=== PATIENT | male | born 1985 | race Two or more races ===

== ENCOUNTER 2025-03-21 08:20 | Emergency (ER) | payer MEDICAID, SELFPAY ==
[2025-03-21 08:26] VITALS: BP 154/90; PULSE 137; RESP 20; TEMP 37.1; O2SAT 95
--- NOTE | 2025-03-21 08:33 | EKG_ITS ---
[facility] Test Date: 2025-03-21 Pat Name: EZEQUIEL PEREYRA Department: Room: - Gender: Male [employer] Operator: : 1985 Requested By: Nasim Hameed Order Number: [id number] Reading MD: Nasim Hameed Measurements Intervals [place] Rate: 126 P: 48 AL: 122 QRS: 26 QRSD: 85 T: 8 QT: 305 QTc: 442 Interpretive Statements SINUS TACHYCARDIA ABNORMAL RHYTHM ECG Compared to ECG 01/18/2022 18:14:20 Short AL interval no longer present T-wave abnormality no longer present /store/S0/[id number]/[id number].pdf
--- NOTE | 2025-03-21 08:33 | PD.EDRME ---
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 A comprehensive ED assessment and evaluation of the patient, analysis of all test results, and completion of the medical decision making process will be conducted by additional ED providers. Chief Complaint: Flu Like Symptoms Time Seen by Provider: 03/21/25 08:29 Vital signs: Vital Signs Temperature 98.8 F 03/21/25 08:26 Pulse Rate 137 H 03/21/25 08:26 Respiratory Rate 20 03/21/25 08:26 Blood Pressure 154/90 H 03/21/25 08:26 Pulse Oximetry (%) 95 03/21/25 08:26 Vital signs reviewed by provider: Yes Exam: Patient is tachycardic. Has a strong irregular rhythm S1 and S2 Clear bilateral lung sounds Clinical Impression: Pneumonia/URI/acute angle glaucoma
[2025-03-21] MEDS: ACETAMINOPHEN 500 MG TABLET 1000 MG PO (08:45)
[2025-03-21 08:46] VITALS: BMI 37.0
--- NOTE | 2025-03-21 10:39 | PD.EDADULT ---
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 A comprehensive ED assessment and evaluation of the patient, analysis of all test results, and completion of the medical decision making process will be conducted by additional ED providers. Exam: Patient is tachycardic. Has a strong irregular rhythm S1 and S2 Clear bilateral lung sounds Impression: Pneumonia/URI/acute angle glaucoma Related Data Home Medications ?Medication ?Instructions ?Recorded ?Confirmed brimonidine 0.15 % eye drops 1 drp ophthalmic (eye) 2XD 01/18/22 01/18/22 latanoprost 0.005 % eye drops 1 drp ophthalmic (eye) 1XD 01/18/22 01/18/22 timolol maleate 0.5 % eye drops 1 drp ophthalmic (eye) 2XD 01/18/22 01/18/22 Previous Rx's ?Medication ?Instructions ?Recorded cyclobenzaprine 5 mg tablet 5 mg PO QHSPRN PRN muscle spasm 07/10/22 #10 tabs ibuprofen 600 mg tablet 600 mg PO TID PRN pain #30 tabs 07/10/22 Allergies Allergy/AdvReac Type Severity Reaction Status Date / Time No Known Allergies Allergy Verified 02/17/24 07:11 Course Orders Category Date Time Status Bedside COVID-19 Antigen Test NOW Care 03/21/25 08:32 Active EKG (ED ONLY) *Do not use* NOW Care 03/21/25 08:33 Completed Tonometer to Bedside X1 Care 03/21/25 08:32 Active EKG (ED Only) Stat Exams 03/21/25 08:33 Draft BNP [B-Type Natriuretic Peptide] Stat Lab 03/21/25 08:33 Ordered CBC Stat Lab 03/21/25 08:32 Ordered CMP [Comprehensive Metabolic Panel] Stat Lab 03/21/25 08:32 Ordered Influenza A & B Rapid Panel Stat Lab 03/21/25 08:32 Ordered Lipase Stat Lab 03/21/25 08:32 Ordered Troponin I Stat Lab 03/21/25 08:32 Ordered UA [Urinalysis] Stat Lab 03/21/25 08:32 Ordered Urine Culture Stat Lab 03/21/25 08:32 Ordered Acetaminophen Tab [Tylenol ES Tab] Med 03/21/25 08:35 Discontinued 1,000 mg PO X1 ONE Vital Signs Vital signs: Vital Signs Temperature 98.8 F 03/21/25 08:26 Pulse Rate 137 H 03/21/25 08:26 Respiratory Rate 20 03/21/25 08:26 Blood Pressure 154/90 H 03/21/25 08:26 Pulse Oximetry (%) 95 03/21/25 08:26 Discharge Plan Prescriptions/Referrals Prescriptions/Med Rec: No Action ibuprofen 600 mg tablet 600 mg PO TID PRN (Reason: pain) Qty: 30 0RF cyclobenzaprine 5 mg tablet 5 mg PO QHSPRN PRN (Reason: muscle spasm) Qty: 10 0RF latanoprost 0.005 % drops 1 drp OPHTHALMIC (EYE) 1XD Patient Comments: INSTILL ONE DROP BOTH eyes AT BEDTIME timolol maleate 0.5 % drops 1 drp OPHTHALMIC (EYE) 2XD Patient Comments: INSTILL ONE DROP IN THE RIGHT EYE TWICE DAILY brimonidine 0.15 % drops 1 drp OPHTHALMIC (EYE) 2XD Patient Comments: INSTILL ONE DROP IN THE RIGHT EYE TWICE DAILY Referrals: No Primary/Family,Physician [Primary Care Provider] - In 1 week Patient/Caregiver Discharge Instructions Print Language: Guatemalan MDM Medication Administration(s) Medication Administration History Discontinued Medications Acetaminophen (Acetaminophen 500 Mg Tablet) 1,000 mg PO X1 ONE Stop: 03/21/25 08:36 Last Admin: 03/21/25 08:45 Dose: 1,000 mg Documented By: LOKI
--- NOTE | 2025-03-21 11:32 | PC.NURSE ---
PT NOT FOUND IN OR OUTSIDE OF LOBBY X3. PT ELOPED.
== END 2025-03-21 11:34 | disposition left against medical advice (07) ==
LOC: SERX 08:51
PROVIDERS: Emergency Provider Emergency Medicine
DX: J18.9 Pneumonia, unspecified organism (principal); J06.9 Acute upper respiratory infection, unspecified; H40.211 Acute angle-closure glaucoma, right eye; R00.0 Tachycardia, unspecified; Z53.29 Procedure and treatment not carried out because of patient's decision for other reasons
CPT/HCPCS: 80053; 81001; 83690; 83880; 84484; 85025; 87086; 87502; 93005; 99282; A9270

== ENCOUNTER 2025-03-30 11:40 | Emergency (ER) | payer MEDICAID, SELFPAY ==
[2025-03-30 11:40] VITALS: BMI 36.3
[2025-03-30 11:50] VITALS: BP 148/92; PULSE 93; RESP 16; TEMP 36.6; O2SAT 98
--- NOTE | 2025-03-30 11:52 | XR_ITS ---
Examination: CT abdomen with intravenous contrast CT pelvis with intravenous contrast 2-D coronal reconstructions 2-D sagittal reconstructions Date and time of exam: March 30, 2025, 1505 hours, comparison October 26, 2017 INDICATIONS: Rectal bleeding beginning 1 week ago. CTDI: vol (mGy) 10.8 DLP: (mGycm) 742 Technique: Multiple axial sections of the abdomen and pelvis have been obtained. 64 slice high-resolution scanner used. 3 mm axial sections have been obtained, post intravenous injection 60 cc Isovue 370 2-D sagittal, coronal reconstructions obtained. Low dose protocols were performed. One or more of the following dose reduction techniques were used; automated exposure control, adjustment of the mA and/or KV according to patient size, use of iterative reconstruction technique. Findings: No visualized liver or splenic lesion No gallstones No pancreatic or adrenal mass No renal or ureteral calculi Aorta normal size Fat replacement throughout the colon seen with prior episodes of colitis No current colitis or bowel obstruction Normal seminal vesicles No prostatomegaly No acute proctitis pattern IMPRESSION: Findings most consistent with prior episodes of diffuse colitis, no current colitis
--- NOTE | 2025-03-30 11:53 | PD.EDRME ---
Rapid Medical Screening Exam RME Arrival date/time: 03/30/25 11:40 Chief Complaint: GI Bleed Vital signs: Vital Signs Temperature 97.9 F 03/30/25 11:50 Pulse Rate 93 03/30/25 11:50 Respiratory Rate 16 03/30/25 11:50 Blood Pressure 148/92 H 03/30/25 11:50 Pulse Oximetry (%) 98 03/30/25 11:50 Oxygen Delivery Method Room Air 03/30/25 11:50 Vital signs reviewed by provider: No Exam: On exam patient well-appearing does not appear ill or toxic no acute distress Clinical Impression: Labs and imaging obtained
[2025-03-30 12:34] LABS: Basophils # (Auto) 0.0 Thou/mm3 (0.0-0.2); Basophils % (Auto) 0 % (0-2.5); Eosinophils # (Auto) 0.2 Thou/mm3 (0.0-0.5); Eosinophils % (Auto) 2 % (0-10); Hematocrit 46.6 % (41.0-53.0); Hemoglobin 15.5 g/dL (13.5-16.0); Immature Granulocytes Auto 0.12 Thou/mm3 (0.00-0.00); Lymphocytes # (Auto) 2.0 Thou/mm3 (1.0-4.8); Lymphocytes % (Auto) 26 % (10-50); Mean Corpuscular HGB Conc 33.3 g/dl (31.0-37.0); Mean Corpuscular Hemoglobin 30.1 pg (25.0-35.0); Mean Corpuscular Volume 91 fL (80-100); Monocytes # (Auto) 0.5 Thou/mm3 (0.0-0.8); Monocytes % (Auto) 7 % (0-12); Neutrophils # (Auto) 4.8 Thou/mm3 (1.8-7.7); Neutrophils % (Auto) 64 % (37-80); Nucleated Red Blood Cell # 0.00 Thou/mm3 (0.00-0.00); Nucleated Red Blood Cell % 0 /100 WBC (0); Platelet Count 300 Thou/mm3 (140-440); RDW Standard Deviation 46.5 fL (35.1-43.9); Red Blood Count 5.15 Miln/mm3 (4.50-5.90); White Blood Count 7.6 Thou/mm3 (3.8-10.6)
[2025-03-30 12:49] LABS: INR 0.9 (0.9-1.3); Partial Thromboplastin Time 31.9 Seconds (22.0-36.0); Prothrombin Time 10.1 Seconds (9.0-12.2)
[2025-03-30 12:52] LABS: Alanine Aminotransferase 59 U/L (10-49); Albumin, Serum 4.7 gm/dL (3.5-5.0); Albumin/Globulin Ratio 1.6 (1.2-2.2); Alkaline Phosphatase 82 U/L (46-116); Anion Gap 9 (7-16); Aspartate Amino Transferase 21 U/L (0-34); BUN/Creatinine Ratio 11 Ratio (12-20); Bilirubin,Total 0.4 mg/dL (0.3-1.2); Blood Urea Nitrogen 9 mg/dL (9-23); Calcium 9.6 mg/dL (8.3-10.6); Calcium (Corrected) 9.6 mg/dL (8.5-10.1); Carbon Dioxide 28.4 mMol/L (20.0-31.0); Chloride 106 mMol/L (98-107); Creatinine (Component) 0.8 mg/dL (0.6-1.3); Estimated Creatinine Clearance 140.5 mL/min (>60); Globulin 2.9 gm/dL (2.3-3.5); Glucose 103 mg/dL (74-106); Lipase 32 U/L (12-53); Osmolality,Calculated 283 (275-295); Potassium 4.1 mMol/L (3.4-5.1); Sodium 143 mMol/L (136-145); Total Protein 7.6 gm/dL (5.7-8.2); eGFR > 60 See Note
[2025-03-30 12:54] LABS: Collection Type, Urine Clean Catch
[2025-03-30 13:02] LABS: Bilirubin,Urine Negative (Negative); Blood,Urine Negative (Negative); Clarity,Urine Clear (Clear/Hazy); Color,Urine Lt-Yellow (Lt Yel-Yel); Culture Indicated,Urine Not Indicated; Glucose, Urine Negative (Negative); Ketones,Urine Negative (Negative); Leukocyte Esterase,Urine Negative (Negative); Nitrite,Urine Negative (Negative); PH,Urine 6.0 (5.0-7.0); Protein,Urine Negative (Neg - Trace); RBC,Urine 3 /hpf (0-3); Specific Gravity,Urine 1.024 (1.001-1.035); Squamous Epithelial Cell,Urine < 1 /hpf (0-5); Urobilinogen,Urine Negative mg/dL (0.0-1.0); WBC,Urine 2 /hpf (0-5)
[2025-03-30 13:11] LABS: Amphetamine/Methamp Scrn,U Negative (Negative); Barbiturate Screen,Urine Negative (Negative); Benzodiazepines Screen,Urine Negative (Negative); Benzoylecgonine Screen, Ur Positive (Negative); Fentanyl Screen,Urine Negative (Negative); Opiate Screen,Urine Negative (Negative); THC Screen,Urine Positive (Negative)
--- NOTE | 2025-03-30 16:04 | EDNOTE_ITS ---
ED GI Bleed RME/HPI General Chief complaint: GI Bleed Stated complaint: GI bleed Time Seen by Provider: 03/30/25 13:48 Arrival date/time: 03/30/25 11:40 39-year-old male presents to the emergency department today for complaints of blood in his stool patient reports symptom onset a couple of weeks ago patient was seen in [place] ER already for the same Limitations: no limitations RME / HPI RME / HPI Narrative: 03/30/25 11:40 Exam: On exam patient well-appearing does not appear ill or toxic no acute distress Impression: Labs and imaging obtained Related Data Home Medications ?Medication ?Instructions ?Recorded ?Confirmed brimonidine 0.15 % eye drops 1 drp ophthalmic (eye) 2X D 01/18/22 01/18/22 latanoprost 0.005 % eye drops 1 drp ophthalmic (eye) 1 XD 01/18/22 01/18/22 timolol maleate 0.5 % eye drops 1 drp ophthalmic (eye) 2XD 01/18/22 01/18/22 Previous Rx's ?Medication ?Instructions ?Recorded cyclobenzaprine 5 mg tablet 5 mg PO QHSPRN PRN muscle spasm 07/10/22 #10 tabs ibuprofen 600 mg tablet 600 mg PO TID PRN pain #30 t abs 07/10/22 hydrocortisone acetate 25 mg 25 mg MT BID #24 ea 03/30 rectal suppository (Anusol-HC) Allergies Allergy/AdvReac Type Severity Reaction Status Date / Time No Known Allergies Allergy Verified 03/30/25 11:43 Review of Systems Review of Systems Systems Reviewed: All systems reviewed, normal except as documented Constitutional Constitutional: Reports system reviewed and no additional complaints, except as documented, Denies fever(s) and Denies headache(s) Eyes Eyes: Reports system reviewed and no additional complaints, except as documented and Denies blurry vision ENT Ears, Nose, Mouth, and Throat: Reports system reviewed and no additional complaints, except as documented, Denies headache(s), Denies nasal congestion and Denies nasal discharge Cardiovascular Cardiovascular: Reports system reviewed and no additional complaints, except as documented, Denies chest pain and Denies dyspnea Respiratory Respiratory: Reports system reviewed and no additional complaints, except as documented, Denies chest congestion, Denies cough and Denies dyspnea Gastrointestinal Gastrointestinal: Reports system reviewed and no additional complaints, except as documented, Denies abdominal pain and Reports hematochezia Integumentary/Breasts Skin/Breast: Reports system reviewed and no additional complaints, except as documented and Denies rash Neurologic Neurologic: Reports system reviewed and no additional complaints, except as documented, Reports as per HPI and Denies headache(s) Past Medical History Past Medical History CARDIAC: Negative Cardiac Disorders or Congestive Heart Failure RESPIRATORY: Negative Chronic Obstructive Pulmonary Disease (COPD) or Asthma GENITOURINARY: Negative Renal Disease ENDOCRINE: Negative Diabetes Mellitus Type 1 or Diabetes Mellitus Type 2 HEMATOLOGIC: Negative Sickle Cell Disease Social History SMOKING STATUS: Never smoker ED Exam General Limitations: Present no limitations General appearance: Present alert and in no apparent distress Head Head exam: Present atraumatic, normocephalic and normal inspection Eye Eye exam: Present normal appearance, PERRL and EOMI; Absent conjunctival injection ENT ENT exam: Present normal exam, normal oropharynx and mucous membranes moist Neck Neck exam: Present normal inspection, full ROM and trachea midline Chest Chest inspection: Present normal inspection and symmetric chest wall rise Respiratory Respiratory exam: Present normal lung sounds bilaterally Cardiovascular Cardiovascular exam: Present regular rate, normal rhythm and normal heart sounds Abdominal Exam Abdominal exam: Present soft; Absent distention, tenderness, guarding, rebound or rigidity Extremities Exam Extremities exam: Present normal inspection and full ROM Back Exam Back exam: Present normal inspection and full ROM Neurological Exam Neurological exam: Present alert, oriented X3 and CN II-XII intact Psychiatric Psychiatric exam: Present normal affect and normal mood Skin Skin exam: Present warm, dry, intact and normal color Course Quality Measures none Orders Category Date Time Status CT Screening NOW Care 03/30/25 11:52 Completed Insert IV NOW Care 03/30/25 11:[address] abdomen pelvis w con Stat Exams 03/30/25 11:52 Completed CBC Stat Lab 03/30/25 12:10 Completed Comprehensive Metabolic Panel Stat Lab 03/30/25 12:10 Completed Drug Screen,Urine Stat Lab 03/30/25 12:41 Completed Lipase Stat Lab 03/30/25 12:10 Completed Partial Thromboplastin Time Stat Lab 03/30/25 12:10 Completed Prothrombin Time with INR Stat Lab 03/30/25 12:10 Completed UA, C/S IF [Urinalysis, C/S if Indicated] Stat Lab 03/30/25 12:40 Completed Vital Signs Vital signs: Vital Signs Temperature 97.9 F 12/04/25 11:50 Pulse Rate 93 03/30/25 11:50 Respiratory Rate 16 03/30/25 11:50 Blood Pressure 148/92 H 03/30/25 11:50 Pulse Oximetry (%) 98 03/30/25 11:50 Oxygen Delivery Method Room Air 03/30/25 11:50 O2 saturation 98% room air within normal limits GI Bleed MDM Narrative MDM Narrative:: 39-year-old male presents to the emergency department today for complaints of blood in his stool patient reports symptom onset a couple of weeks ago patient was seen in [facility] already for the same On exam patient well-appearing does not appear ill or toxic Lab work and imaging obtained no acute emergent findings noted Patient is hemodynamically stable well-appearing not pale no active bleeding hemoglobin stable Explained to the patient although lab work and imaging are unremarkable he still needs to have a colonoscopy and further evaluation with GI specialist patient states understanding Patient discharged home in no distress to follow-up with primary care doctor in the next 24 to 48 hours and for any worsening symptoms to return to the ER immediately Patient data External records reviewed:: [facility] previous records Clinical information provided by:: patient Social determinants that could affect healthcare access:: none Patient has the following chronic illnesses:: See history How is presenting disease/condition affected by chronic disease/condition?: uneffected by Evaluation data The following diagnostics were reviewed and interpreted by me:: lab results and radiology exam(s) Lab and/or radiology exams considered but not ordered:: Labs and radiology obtained Interpretation Summary: Reviewed by me Medications / Prescriptions Medications or Prescriptions considered but not ordered:: Given Rx Medication administrations:: Given Rx Consultations Consultation(s) initiated? (list below): No Diagnosis GI bleed differential diagnosis: hemorrhoids, infectious diarrhea, esophageal varices and Lower gastrointestinal hemorrhage Most likely diagnosis given after review of the tests above:: Rectal bleeding Admission Indicated Admission indicated?: not indicated Admission Request Was there a request for admission?: No Disposition Plan Disposition Plan: Discharge Discharge Attestation Discharge Attestation: The patient and all family members were given an opportunity to ask questions and understood the discharge instructions. Discharge instructions specifically effects, indications for sooner follow up or return to the emergency department, and the expected course of current diagnosis. Patient condition: Stable Discharge Plan Plan Patient Disposition: HOME (Self Care) Discharge Disposition comment: Stable Prescriptions/Referrals Prescriptions/Med Rec: New hydrocortisone acetate [Anusol-HC] 25 mg suppository 25 mg MT BID Qty: 24 0RF No Action ibuprofen 600 mg tablet 600 mg PO TID PRN (Reason: pain) Qty: 30 0RF cyclobenzaprine 5 mg tablet 5 mg PO QHSPRN PRN (Reason: muscle spasm) Qty: 10 0RF latanoprost 0.005 % drops 1 drp OPHTHALMIC (EYE) 1XD Patient Comments: INSTILL ONE DROP BOTH eyes AT BEDTIME timolol maleate 0.5 % drops 1 drp OPHTHALMIC (EYE) 2XD Patient Comments: INSTILL ONE DROP IN THE RIGHT EYE TWICE DAILY brimonidine 0.15 % drops 1 drp OPHTHALMIC (EYE) 2XD Patient Comments: INSTILL ONE DROP IN THE RIGHT EYE TWICE DAILY Referrals: Costa Koch MD [Primary Care Provider, Family Practice] - In 1 week Problem List Clinical Impression: Rectal bleeding Patient/Caregiver Discharge Instructions Education Materials: Understanding Rectal Bleeding Additional Instructions: Please follow-up with her PCP and or get referral to GI specialist soon as possible If you have increased bleeding or pain return immediately for further evaluation Print Language: Mauritanian Stand Alone Forms: Ame Award Info., Work/School Release, Patient Portal Info Letter PA/LINE PRODUCER Supervising Physician PA/SOFIYA Supervising Physician: dr sorensen
== END 2025-03-30 16:28 | disposition home or self-care (01) ==
PROVIDERS: Emergency Provider Nurse Practitioner Primary Care; PCP Family Medicine
DX: K62.5 Hemorrhage of anus and rectum (principal)
CPT/HCPCS: 36415; 74177; 80053; 80307; 81001; 83690; 85025; 85610; 85730; 99283; A4649; Q9967